=== PATIENT | male | born 1945 | race Caucasian/White ===

== ENCOUNTER 2016-11-28 16:32 | Observation (INO) | payer OTHER, MEDICARE ==
[~2016-11-28] VITALS: Ht 177.8 cm; Wt 96.0 kg
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
[2016-11-28] MEDS ORDERED: fentaNYL-PF 50 mCg/mL 2 mL Inj ONE ×4 (16:51→21:06)
[2016-11-28 17:04] LABS: BASOPHILS % (AUTO) 0.1 % (0-3); EOSINOPHILS % (AUTO) 1.3 % (0-5); MONOCYTES % (AUTO) 13.6 % (4-12); Mean Corpuscular Hemoglobin 28.6 pg (27.0-35.0); Mean Corpuscular Volume 85.2 fL (81-100); NEUTROPHILS % (AUTO) 53.3 % (40-74); Platelet Count 188 bil/L (150-400)
[2016-11-28 17:27] LABS: Lipase 181 U/L (13-60); Magnesium 2.2 mg/dL (1.6-2.6)
[2016-11-28 17:29] LABS: TROPONIN T < 0.010 ug/L (0.0-0.011)
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
[2016-11-28] MEDS ORDERED: TdaP Vaccine 0.5 mL Inj IM ONE (20:30)
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
[2016-11-28 21:44] VITALS: BP 124/86; PULSE 87; RESP 18; O2SAT 93
[2016-11-28] MEDS ORDERED: Ondansetron 2 mg/mL 2 mL Inj IVPUSH PRN (21:45)
[2016-11-28] MEDS ORDERED: MetoCLOpramide 5 mg/mL 2 mL Inj IVPUSH PRN (21:45)
[2016-11-28] MEDS: Dextrose 5% Lactated Ringer's 1,000 ML IV SCH (22:12)
[2016-11-28 22:26] LABS: APPEARANCE,URINE CLEAR (CLEAR,HAZY); COLOR,URINE YELLOW (YELLOW); OCCULT BLOOD,URINE SMALL (NEGATIVE); UROBILINOGEN,URINE NORMAL (NORMAL)
[2016-11-28] MEDS: HYDROmorphone 1 mg/mL Inj IVPUSH PRN (23:12)
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
[2016-11-29] MEDS: HYDROmorphone 1 mg/mL Inj IVPUSH PRN ×3 (00:02→10:25)
[2016-11-29 01:49] VITALS: BP 133/69; PULSE 83; RESP 16; O2SAT 95
[2016-11-29] MEDS: Ketorolac 15 mg/mL Inj IVPUSH PRN ×2 (01:56→08:11)
[2016-11-29 05:17] VITALS: PULSE 75
[2016-11-29 05:26] VITALS: BP 116/72; PULSE 72; RESP 18; O2SAT 96
[2016-11-29 06:22] LABS: BASOPHILS % (AUTO) 0.1 % (0-3); MONOCYTES % (AUTO) 17.6 % (4-12); Mean Corpuscular Hemoglobin 28.6 pg (27.0-35.0); Mean Corpuscular Volume 86.5 fL (81-100); NEUTROPHILS % (AUTO) 58.3 % (40-74); Platelet Count 183 bil/L (150-400)
[2016-11-29] MEDS ORDERED: ROB500 PO (07:20)
[2016-11-29] MEDS ORDERED: OXYC5TAB72 PO (07:20)
[2016-11-29] MEDS ORDERED: POLY17PO6 PO (07:20)
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
--- NOTE | 2016-11-29 07:26 | DRSVH ---
PROCEDURE: US BILATERAL DUPLEX DOPPLER IMAGING OF THE CAROTIDS ([id number]) INDICATIONS: evaluate for carotid dissection, vertebral disease TECHNIQUE: Color and pulse Doppler interrogation was performed of both carotid systems, with image documentation and velocity measurements. COMPARISON: None. FINDINGS: All stenosis calculations are based on NASCET criteria. Right side: Brachial blood pressure: 124/86 mm Hg. Common Carotid Artery(Distal) PSV: 89.80 cm/s Internal Carotid Artery PSV- Proximal: 65.40 cm/s Mid-lon.80 cm/s Distal: 82.70 cm/s EDV - Proximal: 16 cm/s Mid-lon.60 cm/s Distal: 23.10 cm/s External Carotid Artery(Proximal) PSV: 151.60 cm/s ICA/CCA PSV ratio: 0.92 Medrano scale imaging description: Mild atheromatous plaque Percent internal carotid artery stenosis: Less than 50%. Vertebral artery: Flow direction is antegrade. Left side: Common Carotid Artery(Distal) PSV: 89.80 cm/s Internal Carotid Artery PSV - Proximal: 62.30 cm/s Mid-lon.40 cm/s Distal: 62.90 cm/s EDV - Proximal: 13 cm/s Mid-lon.10 cm/s Distal: 17.90 cm/s External Carotid Artery(Proximal) PSV: 154.20 cm/s ICA/CCA PSV ratio: 0.7 Medrano scale imaging description: Mild atheromatous plaque Percent internal carotid artery stenosis: Less than 50%. Vertebral artery: Flow direction is antegrade. IMPRESSION: No hemodynamically significant stenosis. Dictated by: Zack Bravo M.D. on 11/29/2016 at 7:22 Approved by: Zack Bravo M.D. on 11/29/2016 at 7:24
[2016-11-29] MEDS: Dextrose 5% Lactated Ringer's 1,000 ML IV SCH (07:41)
[2016-11-29 08:00] VITALS: PULSE 93
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
[2016-11-29 08:31] VITALS: BP 128/68; PULSE 84; RESP 16; O2SAT 94
--- NOTE | 2016-11-29 10:37 | DRSVH ---
PROCEDURE: X-RAY CHEST ONE VIEW, PORTABLE ([id number]) INDICATIONS: evaluate left pneumothorax TECHNIQUE: One view of the chest was acquired. COMPARISON: [facility], CT, CT CHEST ABD PELVIS WO CON, 11/28/2016, 18:07. [facility], CR, XR CHEST 1VW (PORTABLE), 11/28/2016, 16:47. FINDINGS: Surgical changes and devices: None. Lungs and pleura: No pleural effusions or pneumothorax. Lungs are clear, aside from mild presumed l eft basilar atelectasis. Pleural-based opacity involves the left lung apex. Mediastinum: Mediastinal contours appear normal. Heart size is normal. Bones and chest wall: No suspicious bony lesions. Overlying soft tissues appear unremarkable. IMPRESSION: No visualized left pneumothorax and minimal displaced left first and second anterior lateral rib frac tures redemonstrated as were seen on recent CT scan. Focal pleural opacity involving the left lung apex likely related to small pleural based hematoma giv en the rib fractures which are present. Linear stranding at the left lung base likely related to atelectasis. Dictated by: Raciel Montoya A Interpreted: Carol Castañeda MD on 11/29/2016 at 8:56 Approved by: Carol Castañeda MD, PhD on 11/29/2016 at 10:34
--- NOTE | 2016-11-29 12:10 | DRSVH ---
[facility] [address] [place] [address] Echocardiogram Report Name: TIMOTHY ROBERTS WStudy Date : 11/29/2016 Height: 70 in Hospital Exam Location: [facility] Weight: 212 lb Gender: Male BSA: 2.1 m2 : 1945 Age: 71 yrs BP: 116/72 mmHg Reason For Study: Evaluate for great vessel injury Ordering Physician: HOSPITALIST [facility] Performed By: Nimisha Cano Referring Physician: BK PETTIT Interpretation Summary Normal echo study. No pericardial effusion. Normal ascending aorta size. ROLAND is a better test for evaluation of the aorta. Procedure: A two-dimensional transthoracic echocardiogram with color flow and Doppler was performed. The study quality was technically adequate. There is no prior echocardiogram noted for this patient. The patient was in normal sinus rhythm during the exam. Left Ventricle: The left ventricle is normal in size, wall thickness, and systolic function without any focal wall motion abnormalities. The ejection fraction is estimated to be 60-65%. Assessment of diastolic parameters indicates normal left ventricular diastolic function and normal filling pressures. Right Ventricle: The right ventricle is normal in size and function. Atria: Both atria are normal in size. The interatrial septum is intact with no evidence for an atrial septal defect. Mitral Valve: The mitral valve is normal in structure and function. There is trace mitral regurgitation. Aortic Valve: The aortic valve is trileaflet. The aortic valve opens well. No aortic regurgitation is present. Tricuspid Valve: The tricuspid valve is normal in structure and function. There is trace tricuspid regurgitation. Pulmonary artery pressures cannot be estimated because of the lack of a measurable TR jet velocity. Pulmonic Valve: The pulmonic valve is not well seen, but is grossly normal. There is a trace or physiologic amount of pulmonic regurgitation. Great Vessels: The aortic root is normal size. The ascending aorta is normal in size. The IVC is of normal diameter and collapses greater than 50% with a sniff. This suggests a low right atrial pressure of 3 mm Hg. Pericardium/ Pleura There is no pericardial effusion. There is no pleural effusion. MMode/2D Measurements & Calculations LVIDd: 5.1 cm RA long axis LVOT diam LVIDs: 3.4 cm LA A2 area: 19.8 cm FS: 32.5 % LA A4 area: 18.7 cm RA area asc Aorta EPSS: 1.3 cm LA length (vol): 5.1 cm Diam: 3.6 cm IVSd: 0.93 cm LA vol: 61.5 ml : 13.5 cm LVPWd: 0.98 cm LA vol index RA vol: 33.0 ml RA : 28.8 ml/m2 : 15.4 mm2 LV blackburn. diameter/BSA LV sys. diameter/BSA TAPSE: 2.2 cm (cm/m^2): 2.4 (cm/m^2): 1.6 Doppler Measurements & Calculations Ao V2 max: 166.9 cm/sec MV E max tian MV E/A: 0.82 PA V2 max Ao max P.1 mmHg : 59.0 cm/sec : 60.6 cm/sec Ao mean P.5 mmHg MV A max tian PA mean PG LVOT Max Tian : 72.2 cm/sec : 0.78 mmHg : 117.3 cm/sec ROSS(I,D): 2.8 cm sev ratio: 0.72 MV dec time: 0.22 sec Ao V2 mean LV V1 max PG PA V2 mean : 121.6 cm/sec : 42.4 cm/sec Ao V2 VTI: 30.3 cm LV V1 VTI PA pr(Accel) : 21.8 cm : 40.1 mmHg ROSS(V,D): 2.8 cm2 ROSS indexed to BSA (cm^2/m^2): 1.3 Electronically signed by: Johanne Sadler on Reading Physician:11/29/2016 12:10 PM
[2016-11-29 12:31] VITALS: BP 124/74; PULSE 80; RESP 20; O2SAT 97
--- NOTE | 2016-11-29 12:47 | PCM.DISURG ---
Surgical Discharge Instruction Date of Service Nov 29, 2016 Dates of Hospitalization Date of Hospital Admission Nov 28, 2016 at 20:58 Providers Admitting Physician: Kentrell Torrez MD Primary Care Physician: David Attending Physician: Kentrell Torrez MD Discharge Diagnosis Discharge Diagnosis left 1st and 2nd rib fractures Diet Discharge Diet: No restrictions Activity Discharge Activity-General: Activity as pain allows Follow Up Plan Follow Up Plan with your primary care provider in 2-3 weeks Call your provider for: Shortness of breath, Increasing abdominal pain, Vomiting Kentrell Torrez MD Nov 29, 2016 12:47
--- NOTE | 2016-11-29 13:43 | NUR ---
DISCHARGE Oxicodone 5 mg PO has been helpful for pain control. Tolerating liquids PO and his diet well. Denies nausea. No emesis noted. Denies SOB. Patient has been able to ambulate independently in the room and tolerated activity fairly. Voiding without any problems. PO2 on room air in the high 90's. Lung sounds are clear. IV saline lock d/cd. Discharge instructions, care notes and prescription was given to the patient and he verbalized understanding. Discharged to home with his and all his personal belongings. (Copy of D/C is in the chart).
--- NOTE | 2016-11-29 15:48 | NUR ---
Social Work: Attempted Assessment/Discharge DAP: EMR reviewed. Pt discharged prior to being seen by SW. Pt's insurance is listed as Insurance and [employer]. No PCP is listed. NOK is listed as spouse, Lyn Ramachandran, . SW did not receive any MD orders for SW/discharge planning needs. Per RN, pt discharged home via POV with no needs. KEM Mcclellan
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
== END 2016-11-29 13:38 | disposition home or self-care (01) ==
LOC: SED 16:32 → OSC 20:58
PROVIDERS: ADMIT Student in an Organized Health Care Education/Training Program; ATTEND Student in an Organized Health Care Education/Training Program
DX: S22.42XA Multiple fractures of ribs, left side, initial encounter for closed fracture (principal); S27.0XXA Traumatic pneumothorax, initial encounter; V43.52XA Car driver injured in collision with other type car in traffic accident, initial encounter; Y92.410 Unspecified street and highway as the place of occurrence of the external cause; Y93.89 Activity, other specified; I10 Essential (primary) hypertension; K76.89 Other specified diseases of liver; Z87.891 Personal history of nicotine dependence
CPT/HCPCS: 36415; 70450; 71010; 71250; 72125; 72170; 74176; 80053; 81000; 82150; 83690; 83735; 84484; 85025; 85610; 85730; 86850; 93005; 93880; 96374; 96375; 96376; 99285; C8929; G0378; G0480; J1170; J1885; J3010; Q9967